=== PATIENT | male | born 1980 | race Caucasian/White ===

== ENCOUNTER 2016-08-29 22:56 | Emergency (ER) | payer MEDICAID ==
[~2016-08-29] VITALS: Ht 175.3 cm; Wt 78.0 kg
[~2016-08-29 22:56] MED LIST: AMLO10TA80; GABA300C; HYDR-4134; LOSA50TA20
[2016-08-30 03:41] LABS: BASOPHILS % 0.8 % (0.0-2.0); EOSINOPHILS % 1.8 % (0.0-5.0); HEMOGLOBIN. 17.2 g/dL (14.0-18.0); MEAN CORPUSCULAR HEMOGLOBIN 29.4 pg (28.0-32.0); MEAN CORPUSCULAR VOLUME 85.6 fL (80.0-94.0); MEAN PLATELET VOLUME 8.5 fl (7.4-10.4); MONOCYTES % 8.1 % (2.0-8.0); NEUTROPHILS % 55.3 % (40.0-76.0); PLATELET 241 x1000/uL (130-400); RED BLOOD CELL COUNT 5.85 mill/uL (4.7-6.1); RED CELL DISTRIBUTION WIDTH 14.7 % (11.6-14.6)
[2016-08-30 03:52] LABS: CARBON DIOXIDE 20 mEq/L (21-32); CHLORIDE 109 mEq/L (98-107); TROPONIN I < 0.02 ng/mL (0.00-0.04)
[2016-08-30 05:37] VITALS: BP 112/71
== END 2016-08-30 06:39 | disposition home or self-care (01) ==
LOC: ER 22:56
DX: R07.89 Other chest pain (principal); I10 Essential (primary) hypertension; I25.10 Atherosclerotic heart disease of native coronary artery without angina pectoris; Z86.73 Personal history of transient ischemic attack (TIA), and cerebral infarction without residual deficits
CPT/HCPCS: 36415; 71010; 80053; 83690; 84484; 85025; 93005; 99285

== ENCOUNTER 2016-09-20 12:10 | Emergency (ER) | payer MEDICAID ==
[~2016-09-20] VITALS: Ht 157.5 cm; Wt 74.0 kg
[2016-09-20] MEDS ORDERED: CEPHALEXIN 500MG CAPSULE PO ONE (12:45)
[2016-09-20] MEDS ORDERED: HYDROCODONE/ACETAMINOPHEN 10/325MG TABLET PO ONE (12:45)
[2016-09-20 14:22] VITALS: BP 122/81
== END 2016-09-20 14:30 | disposition home or self-care (01) ==
LOC: ER 12:52
DX: L03.115 Cellulitis of right lower limb (principal); Z86.73 Personal history of transient ischemic attack (TIA), and cerebral infarction without residual deficits
CPT/HCPCS: 73630; 99284

== ENCOUNTER 2018-04-28 07:54 | Inpatient (IN) | payer MEDICAID, OTHER ==
[~2018-04-28] VITALS: Ht 167.6 cm; Wt 74.4 kg
[~2018-04-28 07:54] MED LIST changes: -AMLO10TA80; -GABA300C; -HYDR-4134; +HYDR-4134 PO; -LOSA50TA20; +LOSA50TA20 PO; +TOPI50TA PO
[2018-04-28 08:54] LABS: BASOPHILS % 0.7 % (0.0-2.0); EOSINOPHILS % 2.3 % (0.0-5.0); HEMATOCRIT. 48.3 % (42.0-52.0); HEMOGLOBIN. 15.9 g/dL (14.0-18.0); LYMPHOCYTES % 32.2 % (20.0-50.0); MEAN CORPUSCULAR VOLUME 81.8 fL (80.0-94.0); MEAN PLATELET VOLUME 8.6 fl (7.4-10.4); MONOCYTES % 9.5 % (2.0-8.0); NEUTROPHILS % 55.3 % (40.0-76.0); PLATELET 281 x1000/uL (130-400); RED CELL DISTRIBUTION WIDTH 15.6 % (11.6-14.6)
[2018-04-28 08:59] LABS: CHLORIDE 107 mEq/L (98-107)
[2018-04-28 09:00] LABS: PROTHROMBIN TIME 10.2 sec (9.1-11.1)
[2018-04-28 09:03] LABS: ETHANOL BLOOD < 10 mg/dL
[2018-04-28 09:06] LABS: LDL CHOLESTEROL 88 mg/dL (5-100)
[2018-04-28 12:04] LABS: CLARITY URINE CLEAR (CLEAR); COLOR URINE YELLOW (YELLOW); KETONES URINE NEGATIVE (NEGATIVE); LEUKOCYTE ESTERASE URINE NEGATIVE (NEGATIVE); NITRITE URINE NEGATIVE (NEGATIVE); OCCULT BLOOD URINE NEGATIVE (NEGATIVE); PH URINE 8.5 (4.5-8.0); PROTEIN URINE NEGATIVE (NEGATIVE); SPECIFIC GRAVITY URINE 1.011 (1.005-1.030); UROBILINOGEN URINE 0.2 E.U./dL (0.2-1.0)
[2018-04-28] MEDS ORDERED: IOHEXOL-350 100 ML BOTTLE ONE (12:15)
[2018-04-28] MEDS ORDERED: GUAIFENESIN 200MG/10ML SUGAR FREE UDC PO PRN (12:15)
[2018-04-28] MEDS ORDERED: DOCUSATE SODIUM 100MG CAPSULE PO PRN (12:15)
[2018-04-28] MEDS ORDERED: KETOROLAC 15MG/ML VIAL IV PRN (12:15)
[2018-04-28] MEDS ORDERED: CLONIDINE 0.1MG TABLET PO PRN (12:15)
[2018-04-28] MEDS ORDERED: MAGNESIUM/ALUMINUM HYDROXIDE/SIMETHICONE 30ML UDC PO PRN (12:15)
[2018-04-28] MEDS ORDERED: ONDANSETRON HCL 4MG/2ML INJ IV PRN (12:15)
[2018-04-28] MEDS ORDERED: IPRATROPIUM/ALBUTEROL 0.5-3(2.5)MG/3ML NEB INH PRN (12:15)
[2018-04-28] MEDS ORDERED: ACETAMINOPHEN 325MG TABLET PO PRN (12:15)
[2018-04-28 12:37] LABS: CANNABINOID URINE SCREEN NEGATIVE (NEGATIVE); OPIATES URINE SCREEN NEGATIVE (NEGATIVE); PHENCYCLIDINE URINE SCREEN NEGATIVE (NEGATIVE)
[2018-04-28 12:38] LABS: *AMPHETAMINES SCREEN URINE NEGATIVE (NEGATIVE); *BARBITURATES SCREEN URINE NEGATIVE (NEGATIVE); *BENZODIAZEPINES SCREEN URINE NEGATIVE (NEGATIVE); *COCAINE SCREEN URINE NEGATIVE (NEGATIVE); METHADONE URINE SCREEN NEGATIVE (NEGATIVE)
[2018-04-28] MEDS ORDERED: ENOXAPARIN 40MG/0.4ML SYR SUBCUT SCH (15:30)
[2018-04-28 16:34] VITALS: BP 121/78
[2018-04-28 17:56] VITALS: BP 121/78
[2018-04-28] MEDS ORDERED: PNEUMOCOCCAL 23-VAL P-SAC VAC 0.5 ML IM ONE (18:00)
[2018-04-28] MEDS ORDERED: INFLUENZA VIRUS VACCINE(AFLURIA) 0.5ML SYR IM ONE (18:00)
[2018-04-28 18:05] LABS: CREATINE KINASE 116 IU/L (39-308)
[2018-04-28 18:06] LABS: CREATINE KINASE MB FRACTION 1.5 ng/mL (0.5-3.6)
[2018-04-28 20:00] VITALS: BP 139/77
[2018-04-28] MEDS ORDERED: DEXTROSE 50% WATER 50ML SYRINGE IV PRN (20:00)
[2018-04-28] MEDS: INSULIN LISPRO 100 UNITS/ML SUBCUT SCH (20:19)
[2018-04-28] MEDS: BLOOD SUGAR DIAGNOSTIC STRIP TEST SCH (20:19)
[2018-04-28] MEDS ORDERED: ZOLPIDEM TARTRATE 5MG TABLET PO PRN (21:00)
[2018-04-28] MEDS: FAMOTIDINE 20MG TABLET PO SCH (21:01)
[2018-04-29] VITALS: BP 109/67
[2018-04-29 00:29] LABS: CREATINE KINASE MB FRACTION 1.4 ng/mL (0.5-3.6)
[2018-04-29 01:25] LABS: CREATINE KINASE 100 IU/L (39-308)
[2018-04-29 04:00] VITALS: BP 110/79
[2018-04-29 08:00] VITALS: BP 127/91
[2018-04-29] MEDS: INSULIN LISPRO 100 UNITS/ML SUBCUT SCH (08:10)
[2018-04-29] MEDS: BLOOD SUGAR DIAGNOSTIC STRIP TEST SCH (08:25)
[2018-04-29] MEDS: FAMOTIDINE 20MG TABLET PO SCH (08:26)
[2018-04-29] MEDS ORDERED: ASPIRIN 325MG EC TABLET PO SCH (09:00)
[2018-04-29 11:18] VITALS: BP 121/88
[2018-04-29 11:21] VITALS: BP 121/88
== END 2018-04-29 12:33 | disposition home or self-care (01) | DRG 47 ==
LOC: ER 07:54 → 7WST 11:27 → EDBEDREQ 11:30 → EDBEDREQTM 11:30 → ENRESERV 13:34 → CANRESERV 13:34 → EDBEDREQ 13:57 → EDBEDREQSVC 13:57 → ENRESERV 15:33
PROVIDERS: ADMIT Internal Medicine; ATTEND Internal Medicine
DX: G45.9 Transient cerebral ischemic attack, unspecified (principal); E11.9 Type 2 diabetes mellitus without complications; E78.00 Pure hypercholesterolemia, unspecified; I10 Essential (primary) hypertension; Z79.899 Other long term (current) drug therapy; Z86.73 Personal history of transient ischemic attack (TIA), and cerebral infarction without residual deficits
CPT/HCPCS: 36415; 70496; 70551; 71045; 80305; 82550; 82553; 82962; 83036; 83721; 84484; 90732; 93005; 96365; 96375; 99291; J1650; J1885; Q9967

== ENCOUNTER 2018-09-29 22:55 | Emergency (ER) | payer MEDICAID ==
[~2018-09-29] VITALS: Ht 170.2 cm; Wt 84.0 kg
[~2018-09-29 22:55] MED LIST changes: -LOSA50TA20 PO; +LOSA50TA41 PO
[2018-09-30 00:52] LABS: BASOPHILS % 0.8 % (0.0-2.0); EOSINOPHILS % 2.7 % (0.0-5.0); HEMATOCRIT. 44.6 % (42.0-52.0); HEMOGLOBIN. 14.3 g/dL (14.0-18.0); LYMPHOCYTES % 27.2 % (20.0-50.0); MEAN CORPUSCULAR HEMOGLOBIN 24.4 pg (28.0-32.0); MEAN CORPUSCULAR VOLUME 76.5 fL (80.0-94.0); MEAN PLATELET VOLUME 8.5 fl (7.4-10.4); MONOCYTES % 9.1 % (2.0-8.0); NEUTROPHILS % 60.2 % (40.0-76.0); PLATELET 305 x1000/uL (130-400); RED BLOOD CELL COUNT 5.83 mill/uL (4.7-6.1); RED CELL DISTRIBUTION WIDTH 18.4 % (11.6-14.6)
[2018-09-30 00:58] LABS: CHLORIDE 104 mEq/L (98-107)
[2018-09-30 04:02] VITALS: BP 135/78
== END 2018-09-30 04:18 | disposition home or self-care (01) ==
LOC: ER 22:55
DX: R20.2 Paresthesia of skin (principal); I10 Essential (primary) hypertension
CPT/HCPCS: 36415; 70450; 71045; 80053; 85025; 93005; 99284; Z7610

== ENCOUNTER 2023-08-12 00:51 | Emergency (ER) | payer MEDICAID ==
[~2023-08-12] VITALS: Ht 172.7 cm; Wt 73.0 kg
[~2023-08-12 00:51] MED LIST changes: -HYDR-4134 PO; +HYDR25TA78 PO
[2023-08-12 01:01] VITALS: O2SAT 98
[2023-08-12 01:27] LABS: BASOPHILS % 0.4 % (0.0-2.0); EOSINOPHILS % 1.4 % (0.0-5.0); HEMATOCRIT. 51.1 % (42.0-52.0); HEMOGLOBIN. 17.4 g/dL (14.0-18.0); LYMPHOCYTES % 32.8 % (20.0-50.0); MEAN CORPUSCULAR HEMOGLOBIN 29.6 pg (28.0-32.0); MEAN CORPUSCULAR HGB CONC 34.1 g/dL (31.0-37.0); MEAN PLATELET VOLUME 8.3 fl (7.4-10.4); MONOCYTES % 7.5 % (2.0-8.0); NEUTROPHILS % 57.9 % (40.0-76.0); PLATELET 305 x1000/uL (130-400); RED BLOOD CELL COUNT 5.88 mill/uL (4.7-6.1); WHITE BLOOD COUNT 9.7 x1000/uL (4.5-11.0)
[2023-08-12 01:34] LABS: CHLORIDE 103 mEq/L (98-107); POTASSIUM 4.2 mEq/L (3.5-5.1); SODIUM 136 mEq/L (136-145)
[2023-08-12 01:35] LABS: CALCIUM 9.6 mg/dL (8.7-10.4); CARBON DIOXIDE 26 mEq/L (21-32)
[2023-08-12 01:40] LABS: CREATININE 1.5 mg/dL (0.6-1.3); GLUCOSE 150 mg/dL (70-105); UREA NITROGEN BLOOD 15 mg/dL (9-23)
[2023-08-12 01:55] LABS: TROPONIN I HIGH SENSITIVITY < 4 ng/L (3.0-53)
[2023-08-12 02:10] VITALS: TEMP 98.8
[2023-08-12 02:51] LABS: CHLORIDE 105 mEq/L (98-107); POTASSIUM 3.6 mEq/L (3.5-5.1); SODIUM 136 mEq/L (136-145)
[2023-08-12 02:52] LABS: CALCIUM 9.3 mg/dL (8.7-10.4); CARBON DIOXIDE 23 mEq/L (21-32)
[2023-08-12 02:57] LABS: CREATININE 1.4 mg/dL (0.6-1.3); GLUCOSE 147 mg/dL (70-105); UREA NITROGEN BLOOD 15 mg/dL (9-23)
[2023-08-12 02:59] LABS: ALANINE AMINOTRANSFERASE 43 IU/L (10-49); ALBUMIN 4.2 g/dL (3.2-4.8); ASPARTATE AMINOTRANSFERASE 36 IU/L (<34); BILIRUBIN TOTAL 0.5 mg/dL (0.1-1.0); PROTEIN TOTAL 7.2 g/dL (6.0-8.3)
[2023-08-12] MEDS: ACETAMINOPHEN 325MG TABLET PO NR (03:08)
[2023-08-12] MEDS ORDERED: IOHEXOL-350 100 ML BOTTLE ONE (04:57)
[2023-08-12 05:37] VITALS: BP 136/88; PULSE 71; RESP 14
== END 2023-08-12 05:38 | disposition home or self-care (01) ==
LOC: ER 00:51
DX: M54.2 Cervicalgia (principal); Z86.73 Personal history of transient ischemic attack (TIA), and cerebral infarction without residual deficits
CPT/HCPCS: 99285; 70496; 71045; 80053; 83880; 85025; 84484; 36415; 70498; 93005; 70450; 80048; Q9967

== ENCOUNTER 2025-01-15 21:12 | Emergency (ER) | payer MEDICAID ==
[~2025-01-15] VITALS: Ht 175.3 cm; Wt 70.0 kg
[2025-01-15 21:14] VITALS: BP 148/98; PULSE 107; RESP 18; TEMP 36.9; O2SAT 95; O2SAT 97
[2025-01-15] MEDS ORDERED: CALA177S9 TP (23:58)
[2025-01-15] MEDS ORDERED: P50 MT (23:58)
[2025-01-18] MEDS ORDERED: ASPI-864 PO (03:32)
== END 2025-01-15 22:03 | disposition left against medical advice (07) ==
LOC: ER 21:12
DX: R21 Rash and other nonspecific skin eruption (principal)
CPT/HCPCS: 99281

== ENCOUNTER 2025-01-15 22:18 | Emergency (ER) | payer MEDICAID ==
[~2025-01-15] VITALS: Ht 172.7 cm; Wt 70.0 kg
[2025-01-15 22:35] VITALS: TEMP 36.7; O2SAT 98
[2025-01-15] MEDS ORDERED: CALA177S9 TP (23:58)
[2025-01-15] MEDS ORDERED: P50 MT (23:58)
[2025-01-16] MEDS: METHYLPREDNISOLONE SOD SUCC 125MG/2ML (ACT-O-VIAL) IM ONE (00:27)
[2025-01-16 00:32] VITALS: BP 148/108; PULSE 110; RESP 18; O2SAT 100
[2025-01-18] MEDS ORDERED: ASPI-864 PO (03:32)
== END 2025-01-16 00:34 | disposition home or self-care (01) ==
LOC: ER 22:18
DX: R21 Rash and other nonspecific skin eruption (principal); I10 Essential (primary) hypertension; Z79.899 Other long term (current) drug therapy
CPT/HCPCS: 99283; 96372; J2919